=== PATIENT | male | born 1980 | race Caucasian/White ===

== ENCOUNTER 2021-05-02 21:31 | Inpatient (IN) | payer OTHER ==
[~2021-05-02] VITALS: Ht 190.5 cm; Wt 97.1 kg
[~2021-05-02 21:31] MED LIST: KEFLEX CAP 500500 MG PO
[2021-05-02 22:09] LABS: HEMOGLOBIN 16.3 gm/dl (14.0-17.5); RED BLOOD COUNT 5.38 M/UL (4.20-5.50); WHITE BLOOD COUNT 5.5 K/UL (4.5-11.0)
[2021-05-02 22:28] LABS: BUN/CREATININE RATIO 11 (0-10)
[2021-05-03] MEDS ORDERED: BUSPIRONE HCL5 MG PO (02:20)
[2021-05-03] MEDS ORDERED: FLUOXETINE HCL40 MG PO (02:21)
[2021-05-03] MEDS ORDERED: CYCLOBENZAPRINE10 MG PO (02:22)
[2021-05-03] MEDS ORDERED: DOXYCYCLINE MO100 MG PO (02:22)
[2021-05-03] MEDS ORDERED: KETOROLAC TROME10 MG PO (02:24)
[2021-05-03] MEDS ORDERED: IBUPROFEN800 MG PO (06:31)
[2021-05-04 12:22] LABS: HEMOGLOBIN 14.6 gm/dl (14.0-17.5); WHITE BLOOD COUNT 6.3 K/UL (4.5-11.0)
[2021-05-04 12:44] LABS: RED BLOOD COUNT 4.84 M/UL (4.20-5.50)
[2021-05-04 12:58] LABS: BUN/CREATININE RATIO 11 (0-10)
[2021-05-04 14:58] LABS: CRYPTOCOCCUS NEOFORMANS/GATTII Not Detected (Negative); CYTOMEGALOVIRUS Not Detected (Negative); ENTEROVIRUS Not Detected (Negative); ESCHERICHIA COLI K1 Not Detected (Negative); HAEMOPHILUS INFLUENZAE Not Detected (Negative); HERPES SIMPLEX VIRUS 1 Not Detected (Negative); HERPES SIMPLEX VIRUS 2 Not Detected (Negative); HUMAN HERPESVIRUS 6 Not Detected (Negative); HUMAN PARECHOVIRUS Not Detected (Negative); LISTERIA MONOCYTOGENES Not Detected (Negative); NEISERRIA MENINGITIDIS Not Detected (Negative); STREPTOCOCCUS AGALACTIAE Not Detected (Negative); STREPTOCOCCUS PNEUMONIAE Not Detected (Negative); VARICELLA ZOSTER VIRUS Not Detected (Negative)
[2021-05-04 16:16] LABS: RBC (AUTOMATED) 100 10^6 (0); WBC (AUTOMATED 1 10^3 (0-5); WBC (AUTOMATED 3 10^3 (0-5)
[2021-05-04] MEDS ORDERED: BUTALB-ACETAMI1 EAC1 PO (17:53)
[2021-05-04] MEDS ORDERED: VIBRAMYCIN100 MG PO (17:53)
== END 2021-05-04 18:51 | disposition home or self-care (01) | DRG 864 ==
LOC: ER1 21:31 → M/S 05-03 00:19 → CDU 05-03 00:19 → M/S 05-03 01:45
PROVIDERS: Emergency Medicine; Internal Medicine; ADMIT Internal Medicine
PROC: 009U3ZX Drainage of Spinal Canal, Percutaneous Approach, Diagnostic (ICD-10-PCS; principal; 2021-05-04)
PROC: B01BZZZ Fluoroscopy of Spinal Cord (ICD-10-PCS; 2021-05-04)
DX: R50.9 Fever, unspecified (principal); F32.9 Major depressive disorder, single episode, unspecified; F41.9 Anxiety disorder, unspecified; H53.149 Visual discomfort, unspecified; E66.9 Obesity, unspecified; Z68.30 Body mass index [BMI] 30.0-30.9, adult; G43.909 Migraine, unspecified, not intractable, without status migrainosus
CPT/HCPCS: 36415; 70450; 71046; 80048; 80053; 81001; 82550; 82553; 83605; 84484; 85025; 85652; 86140; 86618; 86757; 87040; 87210; 87483; 89051; 96365; 96375; 99285; J0696; J0780; J1200; J1650; J2270; U0002